=== PATIENT | male | born 1935 | race Caucasian/White ===

== ENCOUNTER 2017-03-18 07:18 | Day surgery (SDC) | payer MEDICARE, OTHER ==
--- NOTE | ~2017-03-18 | EGD ---
EGD REPORT [facility] [address] [id number] NAME: MYLES FLANNERY : 33 STATUS : REG [facility] PAT#: [id number] AGE: 81 ADM/REG DATE : 03/18/17 MR#: [id number] REPORT SERV DATE: 03/18/17 DICTATED BY: MARIANO FROST DATE: 03/18/17 REPORT STATUS : Draft TRANSCRIBED BY: [facility] DATE: 03/18/17 [facility] Center Patient Name: Myles Flannery Date of : 1935 Attending MD: MARIANO FROST MD Procedure Date No Time: 03/18/2017 Procedure: Upper GI endoscopy Indications: Epigastric abdominal pain; Prilosec 20mg bid. Patient Profile: Informed consent was obtained from the patient by me prior to the procedure. Risks, benefits, and alternatives were discussed including the risk of bleeding, perforation, infection, reaction to medicine, missed lesion, and cardiopulmonary complications. Referring MD: REECE BASHIR MD, ARACELY GIRALDO, CRICKET CAMARENA Medicines: Monitored Anesthesia Care Complications: No immediate complications. Procedure: Pre-Anesthesia Assessment: - ASA Grade Assessment: III - A patient with severe systemic disease. After obtaining informed consent, the endoscope was passed under direct vision. Throughout the procedure, the patient's blood pressure, pulse, and oxygen saturations were monitored continuously. The GIF [id number] was introduced through the mouth, and advanced to the second part of duodenum. The endoscope was withdrawn with careful examination all mucosal surfaces including retroflexion stomach. The upper GI endoscopy was accomplished without difficulty. The patient tolerated the procedure well. Findings: The 2nd part of the duodenum was normal. Biopsies were taken with a cold forceps for histology. The first part of the duodenum was normal. Pyloroplasty open. Patchy mildly erythematous mucosa was found in the gastric body and in the gastric antrum. Biopsies were taken with a cold forceps for histology. The examined esophagus was normal. Localized mildly erythematous mucosa was found at the E-G anastomosis, minimal. Biopsies were taken with a cold forceps for histology. Impression: - Normal 2nd part of the duodenum. Biopsied. - Normal first part of the duodenum. - Erythematous mucosa in the gastric body and antrum. Biopsied. EGD REPORT [address] [address] NAME: MYLES FLANNERY : 33 STATUS : REG [facility]#: [id number] AGE: 81 ADM/REG DATE : 03/18/17 MR#: [id number] REPORT SERV DATE: 03/18/17 DICTATED BY: MARIANO FROST DATE: 03/18/17 REPORT STATUS : Draft TRANSCRIBED BY: [facility] DATE: 03/18/17 - Normal esophagus. - Erythematous mucosa in the anastomosis. Biopsied. Recommendation: - Patient has a contact number available for emergencies. The signs and symptoms of potential delayed complications were discussed with the patient. Return to normal activities tomorrow. Written discharge instructions were provided to the patient. - Regular diet. - Continue present medications. - Await pathology results. - Await Vascular evaluation. Procedure Code(s): --- Professional --- 45912, Esophagogastroduodenoscopy, flexible, transoral; with biopsy, single or multiple Diagnosis Code(s): --- Professional --- K31.9, Disease of stomach and duodenum, unspecified R10.13, Epigastric pain CPT copyright 2013 [employer]. All rights reserved. The codes documented in this report are preliminary and upon scaffold worker review may be revised to meet current compliance requirements. MARIANO FROST MD 03/18/2017 9:45 AM This report has been signed electronically. Number of Addenda: 0 Note Initiated On: 03/18/2017 9:15 AM Scope Withdrawal Time 0 hours 0 minutes 0 seconds [id number] [id number]
[~2017-03-18 07:18] MED LIST: ADVAIR250 INH; CALTRA600D PO; CARASPUDL PO; CELEXA20 PO; DRAMAMINE25 MG PO; FLOMAX4 PO; GARLIC PO; HYCODAN1 M1 PO; HYOMAX-DT PO; HYOMAX-FT0.125 MG PO; HYOMAX-SL0.125 MG PO; MAXIMUM D3 PO; NEUR300 PO; OTC IRON PO; PCET PO; PREV30 PO; PRILO PO; PROBIOTIC PO; PROSCAR5 PO; ULTRAM50 PO; VICODINTAB PO; VITAMIN D31000 UNIT PO; VITC500 PO; X25 PO; X5 PO; ZANTAC150 MG PO; ZOFRAN4 PO; ZOFRAN8 PO
[2017-04-28] MEDS ORDERED: ZANAFLEX 4 MG TA4 MG PO (09:28)
== END 2017-03-18 23:59 | disposition home or self-care (01) ==
LOC: DMU 07:18
PROVIDERS: Internal Medicine Gastroenterology
PROC: 0DB58ZX Excision of Esophagus, Via Natural or Artificial Opening Endoscopic, Diagnostic (ICD-10-PCS; 2017-03-18)
PROC: 0DB68ZX Excision of Stomach, Via Natural or Artificial Opening Endoscopic, Diagnostic (ICD-10-PCS; 2017-03-18)
PROC: 0DB98ZX Excision of Duodenum, Via Natural or Artificial Opening Endoscopic, Diagnostic (ICD-10-PCS; principal; 2017-03-18 07:30)
DX: K29.50 Unspecified chronic gastritis without bleeding (principal); K20.9 Esophagitis, unspecified; K31.9 Disease of stomach and duodenum, unspecified; D64.9 Anemia, unspecified; F41.9 Anxiety disorder, unspecified; Z88.5 Allergy status to narcotic agent; Z95.0 Presence of cardiac pacemaker; Z85.028 Personal history of other malignant neoplasm of stomach; Z96.1 Presence of intraocular lens; Z88.1 Allergy status to other antibiotic agents; Z88.8 Allergy status to other drugs, medicaments and biological substances; Z90.49 Acquired absence of other specified parts of digestive tract; Z90.89 Acquired absence of other organs; Z98.41 Cataract extraction status, right eye; Z98.42 Cataract extraction status, left eye; Z98.890 Other specified postprocedural states
CPT/HCPCS: 88305; J2405